=== PATIENT | male | born 1970 | race Caucasian/White ===

== ENCOUNTER 2017-12-19 08:19 | Day surgery (SDC) | payer BC ==
[~2017-12-19] VITALS: Ht 188 cm; Wt 116.1 kg
[2017-12-19] MEDS ORDERED: ORACEA40MG PO (08:51)
[2017-12-19] MEDS ORDERED: METROGEL GEL45 GM TP (08:53)
[2017-12-19 09:05] VITALS: BP 127/78; PULSE 76; TEMP 97.8
[2017-12-19 10:28] VITALS: BP 126/73; PULSE 16; TEMP 98
[2017-12-19 10:43] VITALS: BP 106/67; PULSE 16
[2017-12-19 10:58] VITALS: BP 111/65; PULSE 16
[2017-12-19 11:20] VITALS: BP 103/63; PULSE 58
== END 2017-12-19 11:30 | disposition home or self-care (01) ==
LOC: SDCO 08:19
DX: Z12.11 Encounter for screening for malignant neoplasm of colon (principal); Z80.0 Family history of malignant neoplasm of digestive organs; K63.5 Polyp of colon
CPT/HCPCS: J2250; J2405; J3010; J7030